=== PATIENT | male | born 1965 | race Caucasian/White ===

== ENCOUNTER 2020-07-21 13:13 | Emergency (ER) | payer MEDICARE, MEDICAID, SELFPAY ==
[2020-07-21 13:42] VITALS: BP 152/74; PULSE 103; RESP 16; TEMP 36.4; O2SAT 98; BMI 32.1
--- NOTE | 2020-07-21 13:46 | PC.NURSE ---
Self reported mites that his roommate has- bed bugs in trailer and he wants to get checked out for the same. Also reports general unwell feeling since Covid that he thinks is improving. He says he has a decreased appetite and has not been drinking enough water and thinks he is dehydrated. He denies wanting treatment for that. given a large glass of water and alden yara at this time.
--- NOTE | 2020-07-21 14:25 | ED.SKABFB ---
HPI - Skin/Abscess/Foreign Bdy <ROHINI Abdi - Last Filed: 07/21/20 14:29> General Chief complaint: Skin/Abscess/Foreign Body Stated complaint: ROOMMATE OF OTHER PT, HAS MITES Time Seen by Provider: 07/21/20 13:35 Source: patient Mode of arrival: Ambulatory Limitations: no limitations History of Present Illness HPI narrative: The patient is a 54-year-old male non drinker, non methamphetamine user who presents with a chief complaint of exposure to might by his roommate. He states he and his remained live in the same trailer, his roommate was treated with permethrin and he would also like a prescription of permethrin. He states that he does not have any specific bites, but has itching on his hands on his scalp especially at night. He states he has a complicated medical history and he would rather not get sick. He was diagnosed with coronavirus at the end of last month at an outside facility. He has not followed up with primary care provider. However he is only here for the mite exposure and that is what he wants to have evaluated today. Related Data Previous Rx's Medication Instructions Recorded permethrin 1 applic TOPICAL Q14D #60 g 07/21/20 Review of Systems <ROHINI Abdi - Last Filed: 07/21/20 14:29> Review of Systems Narrative: GENERAL: Denies chills, fatigue, malaise, fever, sweats. HEENT: Denies sinus pain, ear pain, sore throat, difficulty swallowing, dizziness. RESPIRATORY: Denies dyspnea, cough, wheezing, hemoptysis, sputum. CARDIOVASCULAR: Denies chest pain, palpitations, orthopnea, edema, GASTROINTESTINAL: Denies nausea, vomiting, abdominal pain, diarrhea, constipation, melena. : Denies dysuria, frequency, incontinence, hematuria, urinary retention. MUSCULOSKELETAL: denies weakness, joint pain, or bony pain SKIN: See HPI NEUROLOGIC: Denies weakness, headache, numbness, change in speech, confusion, seizures, incoordination. PSYCHIATRIC: No concerning psychosocial issues. 12 point review of systems is negative except for those stated above Patient History <ROHINI Abdi - Last Filed: 07/21/20 14:29> Medical History (Updated 07/21/20 @ 14:29 by ROHINI Abdi) History of diabetes as a child Exam <ROHINI Abdi - Last Filed: 07/21/20 14:29> Narrative Exam Narrative: GENERAL: This is a well-nourished, well-developed patient, in no acute distress HEAD: Atraumatic. Normocephalic. No temporal or scalp tenderness. EYES: Pupils equal round and reactive. Extraocular motions intact. No scleral icterus. No injection or drainage. ENT: Nose without bleeding, purulent drainage or septal hematoma. Wearing a mask Airway patent. NECK: Trachea midline. No JVD or lymphadenopathy. Supple, nontender, no meningeal signs. CARDIOVASCULAR: Regular rate and rhythm RESPIRATORY: No cough. No increased respiratory effort. No accessory muscle use. Speaking full sentences EXTREMITIES: No clubbing, cyanosis, or edema. No joint tenderness, effusion, or edema noted. BACK: Nontender without deformity or crepitance. No flank tenderness. NEURO: AOx3. SKIN: No obvious rash over bilateral hands forearms neck or scalp. Initial Vital Signs Initial Vital Signs: Vital Signs Temperature 97.5 F L 07/21/20 13:42 Pulse Rate 103 H 07/21/20 13:42 Respiratory Rate 16 07/21/20 13:42 Blood Pressure 152/74 H 07/21/20 13:42 Pulse Oximetry 98 07/21/20 13:42 <Camille Malave MD - Last Filed: 07/21/20 15:34> Initial Vital Signs Initial Vital Signs: Vital Signs Temperature 97.5 F L 07/21/20 13:42 Pulse Rate 103 H 07/21/20 13:42 Respiratory Rate 16 07/21/20 13:42 Blood Pressure 152/74 H 07/21/20 13:42 Pulse Oximetry 98 07/21/20 13:42 Scores <ROHINI Abdi - Last Filed: 07/21/20 14:29> GCS [place] coma scale eye opening: Spontaneous [place] coma scale verbal response: Orientated [place] coma scale motor response: Obey commands Trini coma scale total score: 15 Course <ROHINI Abdi - Last Filed: 07/21/20 14:29> Vital Signs Vital signs: Vital Signs - 8 hr 07/21/20 13:42 01/16/21 14:26 Temperature 97.5 F L Pulse Rate 103 H 96 H Respiratory Rate 16 16 Blood Pressure 152/74 H Pulse Oximetry 98 98 <Camille Malave MD - Last Filed: 07/21/20 15:34> Vital Signs Vital signs: Vital Signs - 8 hr 07/21/20 13:42 07/21/20 14:26 Temperature 97.5 F L Pulse Rate 103 H 96 H Respiratory Rate 16 16 Blood Pressure 152/74 H Pulse Oximetry 98 98 MDM - Skin/Abscess/Foreign Bdy <Hamida AlvarezCINDY romo- - Last Filed: 07/21/20 14:29> MDM Narrative Medical decision making narrative: The patient is a 54-year-old male who presents with a chief complaint of an exposure to mites. His roommate was treated with permethrin and he would also like a prescription. Given his itching, is worse than I am okay with this. Encouraged follow-up with primary care provider in the next few days. Discussed at length washing everything in his home, washing all his clothes in hot water etcetera. Patient has no questions or concerns upon discharge and states understanding of return precautions as well as follow-up care. Discharge Plan Departure Patient Disposition: Home Clinical Impression: Rash and nonspecific skin eruption Instructions: DI for Scabies, DI for Rash Activity Restrictions/Additional Instructions: Thank you for trusting us with your care today. As discussed, I do not see any evidence of skin infestation at this point. However given your concerns the possible exposure, I have sent a prescription to [facility]. I have given you a note off for 2 doses, 2 weeks apart. As discussed, please follow-up with primary care provider in the next few days. Please come back to the emergency department for any acute concerns. Prescriptions: New permethrin 5 % cream 1 applic topical Q14D Qty: 60 RF: 0 Referrals: Arvind Rodriguez MD [Primary Care Provider] - <Camille Malave MD - Last Filed: 07/21/20 15:34> Cosign ED Attending Cosignature Attestation: I was immediately available in the department for consultation throughout this patient's visit. I agree with documentation as above. Camille Malave MD
[2020-07-21 14:26] VITALS: PULSE 96; RESP 16; O2SAT 98
== END 2020-07-21 14:27 | disposition home or self-care (01) ==
PROVIDERS: Emergency Provider Nurse Practitioner Family; PCP Family Medicine
DX: R21 Rash and other nonspecific skin eruption (principal)
CPT/HCPCS: 99281